=== PATIENT | male | born 1995 | race African-American/Black ===

== ENCOUNTER 2019-08-11 15:00 | Outpatient (RCR) | payer OTHER, MEDICAID, SELFPAY ==
--- NOTE | 2019-06-30 11:43 | PTOPEVAL ---
PHYSICAL THERAPY EVALUATION AND PLAN OF CARE 06-30-2019 The PT evaluation for the diagnosis of Chiari Malformation, s/p surgery with debility and weakness was completed and the plan of treatment is set for 1x/week for 6 weeks. The treatment plan includes strengthening of UE's and LE's, gait and balance retraining. Thank you for referring Marcus to [facility]. Please review, sign, date and return this plan of care ODELL. I agree with and certify that the following plan of care is medically necessary. Referring Physician Date Attending Provider: Dr. Shailesh Sung *PT Outpatient Evaluation Start: 06/30/19 10:23 Document 06/30/19 10:15 VALENTINA (Rec: 06/30/19 11:42 VALENTINA [email or web address]) e Outpatient Past Medical History Neurological History Hx Other Neurological Disorders Yes: this surgery: Chiari malformation surgery Cardiovascular History Hx Cardiac Disorders No Significant History Respiratory History Hx Respiratory Disorders No Significant History Gastrointestinal History Hx Gastrointestinal Disorders No Significant History Genitourinary History Hx Genitourinary Disorders No Significant History Musculoskeletal History Hx Musculoskeletal Disorders No Significant History Hematological History Hx Hematological Disorders No Significant History Endocrine History Hx Endocrine Disorders No Significant History HEENT History Hx HEENT Disorders No Significant History Evaluation Information Problem Diagnosis Chiari Malformation/ surgery Onset Jun 11, 2019 surgery Subjective Information to May 2019, due to issues- Query Text:As Reported By Patient/ -neck pain, shoulder and back Family pain; off balance with walking ; had surgery, hospitalized after surgery ~ 1 wk; stapled removed last week from back of head; Previous Treatments Previous Treatments For This Problem had in pt PT services; did not have 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
--- NOTE | 2019-08-11 15:51 | PTOPEVAL ---
Addendum entered by Sandee So, PT 08/12/19 12:35: Marcus is able to perform higher level balance activities without loss of balance: jumping, skipping, hopping over small items on floor, lunges, light jogging. Original Note: PHYSICAL THERAPY DISCHARGE 08-11-2019 Marcus has received 7 Physical Therapy sessions, from June 30 to today. His treatment included: UE and LE strengthening, gait and balance retraining with education for home exercise program. Marcus improved in all areas; UE strength, LE strength, walking tolerance with 6 minute walking test, TUG, Mackenzie balance score, B UE Lifting, gait and stair ability. He is motivated and doing his home exercises and doing more activity and going out into the community. The PT goals were achieved. He is to continue with his exercises and increasing his activity level with functional tasks and home activities. Thank you for referring this patient to [facility]. Please review, sign, date and return this discharge ODELL. I agree with and certify that the following plan of care is medically necessary. Referring Physician Date Attending Provider: Dr. Shailesh Sung *PT Outpatient Discharge Document 08/11/19 15:27 VALENTINA (Rec: 08/11/19 15:51 VALENTINA [email or web address]) Subjective Information Marcus reports: is driving Query Text:As Reported By Patient/ without any problems; walking Family and going out into the community; Pain Assessment Timing of Pain Assessment Timing of Pain Assessment Assessment Pain Scale Pain Scale Used Numeric (1 - 10) Self Report Pain Assessment Bilateral Neck Reported Pain Level 0 Pain Frequency Acute Current Pain Intensity 0 Lowest Pain Intensity 0 Greatest Pain Intensity 5 Other Pain Aggravating Factors rotation of neck when driving; when lying on back Pain Score Pain Score 0: Self Report Lower Extremity Muscle Strength Testing General Lower Extremity Strength Gross Lower Extremity Strength SLS R 33/ L 12 seconds; Upper Extremity Muscle Strength Testing General Upper Extremity Strength Gross Upper Extremity Strength 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
== END 2019-08-13 10:04 | disposition home or self-care (01) ==
LOC: ANHPT 15:00
PROVIDERS: PCP Internal Medicine Infectious Disease
DX: Z47.89 Encounter for other orthopedic aftercare (principal); R53.81 Other malaise
CPT/HCPCS: 97110; 97162

== ENCOUNTER 2019-09-23 08:54 | Outpatient (CLI) | payer MEDICAID, SELFPAY ==
--- NOTE | ~2019-09-23 | XR_ITS ---
XR cervical spine 4-5V DATE: 09/23/2019 09:26 INDICATION: Chiari malformation. Surgery of cervical decompression. TECHNIQUE: Lateral, swimmer's, AP, open-mouth views COMPARISON: 06/22/2019 CT cervical spine FINDINGS: There is reversal of cervical curvature. C1 and C2 are normally aligned and the odontoid process is intact. No fracture, dislocation or locked facet or prevertebral soft tissue swelling. Cervical interspaces are well preserved. IMPRESSION: Reversal of cervical curvature Reviewed, dictated and finalized at location A.
--- NOTE | ~2019-09-23 | MR_ITS ---
EXAMINATION: MR cervical spine wo con DATE: 09/23/2019 10:00 INDICATION: Chiari malformation post cervical decompression TECHNIQUE: Magnetic resonance imaging (MRI) of the cervical spine was performed without intravenous c ontrast. Sequences included sagittal T2-weighted FSE, sagittal T2-weighted FS FSE, sagittal T1-weight ed FSE, axial MERGE and axial T2-weighted FSE. COMPARISON: 04/21/2019 FINDINGS: Interval postoperative changes of prior suboccipital craniectomy for Chiari malformation decompressio n with multiple foci of susceptibility artifact along the margins of the osteotomy. There also appear to be osteotomies of the posterior ring of C1 as well as along the posterior and cephalad margin of the spinous process of C2. Again seen are low-lying cerebellar tonsils which extend beyond the previo us margins of the foramen magnum. Straightening of the normal cervical lordosis. Vertebral body heigh ts are normal. Bone marrow signal intensity is normal. Intervertebral disc heights are normal. There are disc bulges resulting in mild central canal stenosis at C3-C4 through C6-C7. No neural foraminal stenosis. No significant interval change in a large syringohydromyelia which extends from the level of the base of the C2 vertebral body into the visualized upper thoracic spine. The diameter of the syrinx is a m aximum of 7 x 4 mm at the level of C4 which is approximately 1 mm smaller in each dimension than on t he prior study. This tapers to a diameter of 2 x 1 mm at level of T1 right lies slightly to the left of midline. On the sagittal images were obtained the seen extending to at least the level of T6 the d iameter appears minimally decreased since the prior study. IMPRESSION: 1. Chiari I malformation post recent suboccipital decompression craniectomy with severe secondary cer vicothoracic syringohydromyelia which is minimally decreased in diameter since the prior study. 2. Mild cervical spondylosis. Reviewed, dictated and finalized at location A. IMPRESSION: 1. Chiari I malformation post recent suboccipital decompression craniectomy wit h severe secondary cervicothoracic syringohydromyelia which is minimally decrea sed in diameter since the prior study. 2. Mild cervical spondylosis.
== END 2019-09-23 08:55 | disposition home or self-care (01) ==
PROVIDERS: PCP Internal Medicine Infectious Disease
DX: G93.5 Compression of brain (principal); G95.0 Syringomyelia and syringobulbia; M47.812 Spondylosis without myelopathy or radiculopathy, cervical region; M53.82 Other specified dorsopathies, cervical region
CPT/HCPCS: 72050; 72141

== ENCOUNTER 2019-12-23 09:07 | Outpatient (CLI) | payer OTHER, SELFPAY ==
--- NOTE | ~2019-12-23 | MR_ITS ---
EXAMINATION: MR cervical spine wo con EXAM DATE: 12/23/2019 10:20 INDICATION: Syrinx. Cervical spinal cord follow-up. Surgery for Chiari I malformation. TECHNIQUE: Multi-sequential, multiplanar MR images of the cervical spine were obtained without contra st. Axial T2, axial T2 MERGE sequence. Sagittal T1, T2, T2 fat saturation images also obtained. . FINDINGS: Again there are surgical changes from suboccipital craniectomy. Again there is a cervical spinal cord syrinx starting at the C2 level tapering down through T1. Compared to September there has bee n improvement in the dilation of the syrinx, which now measures about 2.7 x 4.3 mm at the C3-4 disc s pace level versus 3.7 x 5.5 mm in September. Mild cervical spondylosis is unchanged. There are no suspici ous marrow signal abnormalities. Paraspinal soft tissue is unremarkable. IMPRESSION: Suboccipital decompressive craniectomy with improvement in cervical syrinx. Reviewed, dictated and finalized at location A.
== END 2019-12-23 09:08 | disposition home or self-care (01) ==
LOC: ANHIMG 09:21
PROVIDERS: PCP Internal Medicine Infectious Disease
DX: G95.0 Syringomyelia and syringobulbia (principal)
CPT/HCPCS: 72141